=== PATIENT | male | born 1995 | race Caucasian/White ===

== ENCOUNTER 2021-01-05 01:22 | Emergency (ER) | payer SELFPAY ==
[2021-01-05] MEDS ORDERED: Ibuprofen 200 MG TAB ONE (01:44)
[2021-01-05] MEDS ORDERED: Acetaminophen 500 MG TAB ONE (01:50)
[2021-01-05 08:46] LABS: SARS-CoV-2 PCR by NAA Not Detected (NotDetected)
== END 2021-01-05 02:50 | disposition home or self-care (01) ==
LOC: ERS 01:22
DX: J02.9 Acute pharyngitis, unspecified (principal); Z20.822 Contact with and (suspected) exposure to COVID-19; I10 Essential (primary) hypertension; F17.210 Nicotine dependence, cigarettes, uncomplicated
CPT/HCPCS: 87081; 87430; 87635; 99283; U0003; U0005

== ENCOUNTER 2021-04-23 21:06 | Observation (INO) | payer OTHER, SELFPAY ==
[2021-04-23] MEDS ORDERED: Dextrose 5% in Water 1,000 ML IV PRN (22:40)
[2021-04-23] MEDS ORDERED: Dextrose 50% Abboject 50 ML SYRINGE SLOW IVP PRN (22:40)
[2021-04-23] MEDS ORDERED: hydrALAZINE 20 MG/ML VIAL SLOW IVP PRN (22:40)
[2021-04-23] MEDS ORDERED: Potassium Chloride 40 MEQ in Premix Bag 1 BAG IVPB SCH (22:45)
[2021-04-23 23:49] VITALS: BMI 22.8
[2021-04-24] MEDS: Potassium Chloride 20 MEQ in Premix Bag 1 BAG IVPB SCH ×2 (00:01→01:59)
[2021-04-24] MEDS: Sodium Chloride 0.9% 1,000 ML IV SCH ×2 (00:02→08:07)
[2021-04-24 00:18] LABS: Amphetamine Detected (NotDetected); Barbiturates Screen Not Detected (NotDetected); Benzodiazepine Screen Not Detected (NotDetected); Cocaine Metabolite Screen Not Detected (NotDetected); Medtox Control Line Valid? VALID (VALID); Medtox Reader # READER 4; Methadone Not Detected (NotDetected); Methamphetamine Detected (NotDetected); Opiate Screen Not Detected (NotDetected); Oxycodone Screen Not Detected (NotDetected); Phencyclidine (PCP) Not Detected (NotDetected); THC/Cannabinoid Screen Detected (NotDetected); Tricyclic Screen Not Detected (NotDetected)
[2021-04-24 03:24] LABS: #Lymphocytes 0.9 thou/uL (1.20-3.40); #Monocytes 1.1 thou/uL (0.11-0.59); #Neutrophils 16.3 thou/uL (1.40-6.50); %Eosinophils 0.1 % (0.0-10.0); %Lymphocytes 4.8 % (21.0-51.0); %Neutrophils 89.2 % (42.0-75.0); Hemoglobin 14.2 g/dL (14.0-18.0); Mean Corpuscular HGB CONC 34.3 g/dL (32.0-36.0); Mean Corpuscular Volume 87.5 fL (78.0-98.0); Mean Platelet Volume 7.3 fL (7.4-10.4); Platelet Count 264 thou/uL (130-400); RBC Distribution Width 12.7 % (11.5-14.5); Red Blood Cell (RBC) Count 4.74 mill/uL (4.70-6.10); White Blood Cell (WBC) Count 18.2 thou/uL (4.8-10.8)
[2021-04-24 03:39] LABS: Prothrombin Time 13.6 sec (12.0-14.7)
[2021-04-24 03:40] LABS: PTT 25.1 sec (22.9-36.1)
[2021-04-24 03:45] LABS: Phosphorus 3.9 mg/dL (2.3-4.7)
[2021-04-24 03:47] LABS: Anion Gap 16 mmol/L (10-20); BUN (Urea Nitrogen) 10 mg/dL (8.9-20.6); Calc. Creatinine Clearance 134 mL/min (70-130); Calcium 9.1 mg/dL (7.8-10.44); Carbon Dioxide 23 mmol/L (22-29); Chloride 103 mmol/L (98-107); Glucose 114 mg/dL (70-105); Magnesium 1.6 mg/dL (1.6-2.6); Potassium 4.1 mmol/L (3.5-5.1); Sodium 138 mmol/L (136-145)
[2021-04-24] MEDS: Ondansetron PF 4 MG/2 ML Vial IVP PRN ×2 (04:36→08:02)
[2021-04-24] MEDS: Acetaminophen 500 MG TAB PO PRN ×2 (08:02)
[2021-04-24] MEDS ORDERED: Famotidine/PF 20 mg/2ml Vial SLOW IVP SCH (09:00)
[2021-04-24] MEDS ORDERED: Acetaminophen/Codeine 30-300mg Tablet PO PRN (12:09)
[2021-04-24] MEDS ORDERED: Acetaminophen 500 MG TAB PO PRN (12:10)
[2021-04-24 12:25] VITALS: TEMP 98.2
== END 2021-04-24 17:25 ==
LOC: IMCU/EMU 22:37 → INTOOBSV 22:37
PROVIDERS: ADMIT Surgery; ATTEND Surgery
DX: S06.6X9A Traumatic subarachnoid hemorrhage with loss of consciousness of unspecified duration, initial encounter (principal); T14.91XA Suicide attempt, initial encounter; E87.6 Hypokalemia; V87.8XXA Person injured in other specified noncollision transport accidents involving motor vehicle (traffic), initial encounter; Z88.0 Allergy status to penicillin; Z20.822 Contact with and (suspected) exposure to COVID-19
CPT/HCPCS: 36415; 70450; 80048; 80306; 83735; 84100; 85025; 85610; 85730; 96372; G0378; J2405; J3480; S0028

== ENCOUNTER 2021-06-25 13:38 | Emergency (ER) | payer SELFPAY ==
[2021-06-25 15:35] LABS: Bilirubin Negative (Negative); Blood, Urine Small (Negative); Glucose, Urine (Dipstick) Negative (Negative); Ketone, Urine Negative (Negative); Leukocyte Moderate (Negative); Nitrite Negative (Negative); Protein, Urine (Dipstick) 30 mg/dL (Neg-Trace); Specific Gravity, Urine 1.025 (1.005-1.030); Urobilinogen 0.2 mg/dL (Less than 2); pH, Urine 6.5 (5.0-9.0)
[2021-06-25 15:37] LABS: Clarity Hazy (Clear)
[2021-06-25 15:43] LABS: Bacteria/HPF 2+ HPF (None Seen); RBC/HPF 0-3 HPF (0-3); Squamous Epithelial 0-3 HPF (0-3); WBC/HPF Greater Than 50 HPF (0-3)
[2021-06-25] MEDS ORDERED: cefTRIAXone\\ROCEPHIN 500 MG VIAL ONE (15:48)
[2021-06-30 21:07] LABS: Chlam.trachomatis by PCR,Urine Inconclusive (NotDetected)
== END 2021-06-25 15:56 | disposition home or self-care (01) ==
LOC: ERS 13:38
DX: N34.2 Other urethritis (principal); I10 Essential (primary) hypertension; F17.210 Nicotine dependence, cigarettes, uncomplicated; Z79.899 Other long term (current) drug therapy
CPT/HCPCS: 81003; 81015; 87491; 87591; 96372; 99283; J0696